=== PATIENT | male | born 1965 | race Caucasian/White ===

== ENCOUNTER → 2020-03-26 | Outpatient (CLI) | payer OTHER ==
--- NOTE | 2020-03-26 09:50 | Diagnostic Imaging Report ---
EXAMINATION: Right knee radiographs, 3 views. COMPARISON: None. HISTORY: 54-year-old male, right knee pain. FINDINGS: There is severe patellofemoral compartment joint space loss. The medial and lateral compartments are not significantly narrowed. There is no knee joint effusion. There is no identified acute fracture. There is no chondrocalcinosis. IMPRESSION: 1. Severe and isolated patellofemoral compartment arthritis without knee joint effusion or chondrocalcinosis. Dictated by: Dictated on workstation # [id number]
== END ==
LOC: RAD FS 09:32
PROVIDERS: ATTEND Nurse Practitioner
DX: M17.11 Unilateral primary osteoarthritis, right knee (principal)
CPT/HCPCS: 73562

== ENCOUNTER 2020-07-16 15:12 | Day surgery (SDC) | payer MEDICARE ==
[~2020-07-16] VITALS: Ht 174 cm; Wt 150.8 kg
[2020-07-16] VITALS (8 sets, daily range): BP systolic 113–144; BP diastolic 63–78
--- NOTE | 2020-07-16 15:57 | History & Physical-Surgical ---
CLARITA ARANGO,MED STUDENT 07/16/20 1557: History of Present Illness History of Present Illness Reason for visit/HPI Pt is a 54 year old male who was sent to this hospital from Dr. Benedict in [place] for surgical management of appendicitis which was found on CT. He states he started having stabbing RLQ pain that woke him up (07/12/20) night. Rates it as a 6/10 at its worse. He states the pain comes and goes and has not gotten worse or better since it started. Lifting his knees to his chest and bending over makes the pain better. Moving and walking make it worse. Has never experienced this type of pain before. He states he takes hydrocodone regularly so he is not sure if this is making the pain less. He states he also is experiencing feeling feverish, chills, nausea and loose stools. Also reports urinary frequency, odor and orange urine. Denies previous abdominal surgeries, but has multiple previous orthopedic surgeries. Last meal was around noon, had chips. States he had a dip in before arriving here. Date of Admission Time Seen by a Provider: 15:30 I consulted on this patient on 07/16/20 15:50 Attending Physician Karen Duke DO Admitting Physician Anderson Benedict MD Consult Allergies and Home Medications Allergies Coded Allergies: No Known Drug Allergies (Unverified , 07/16/20) Home Medications Atorvastatin Calcium 20 Mg Tablet, 20 MG PO HS, (Reported) Escitalopram Oxalate 20 Mg Tablet, 20 MG PO DAILY, (Reported) Glimepiride 1 Mg Tablet, 1 MG PO DAILY, (Reported) Hydrochlorothiazide 25 Mg Tablet, 25 MG PO DAILY, (Reported) Hydrocodone/Acetaminophen 1 Each Tablet, 1 EACH PO TID, (Reported) Insulin Glargine,Hum.rec.anlog 100 Unit/1 Ml Vial, 10 UNIT SQ DAILY, (Reported) Irbesartan 300 Mg Tablet, 300 MG PO DAILY, (Reported) Lamotrigine 100 Mg Tablet, 100 MG PO BID, (Reported) Metformin HCl 1,000 Mg Tablet, 1,000 MG PO BID, (Reported) Quetiapine Fumarate 100 Mg Tablet, 100 MG PO HS, (Reported) Past Eutjajj-Klhhoo-Xnvrzj Hx Patient Social History Smoking Status: Never a Smoker Type Used: Smokeless Tobacco Substance type: Nicotine Surgeries History of Surgeries: Yes Surgeries: Joint Replacement (L hip), Orthopedic (bilateral knee scopes, R rotator cuff, R biceps tendon, L ankle), Tonsillectomy Respiratory History of Respiratory Disorde: Yes Respiratory Disorders: Sleep Apnea Cardiovascular History of Cardiac Disorders: Yes Cardiac Disorders: High Cholesterol, Hypertension Genitourinary History of Genitourinary Disor: No Gastrointestinal History of Gastrointestinal Di: No Musculoskeletal History of Musculoskeletal Dis: Yes Musculoskeletal Disorders: Arthritis Endocrine History of Endocrine Disorders: Yes Endocrine Disorders: Diabetes, Insulin dep HEENT History of HEENT Disorders: No Psychosocial History of Psychiatric Problem: Yes Behavioral Health Disorders: Bipolar Family Medical History Significant Family History: Cancer (mom- lung), CAD Over 55 Years Old Review of Systems Constitutional: chills, fever; No weakness EENTM: No blurred vision, No vision loss, No throat pain Respiratory: cough, short of breath Cardiovascular: No chest pain, No palpitations Gastrointestinal: abdominal pain (RLQ), diarrhea; No dysphagia; nausea; No vomiting Genitourinary: No dysuria; frequency, other (abnormal odor) Musculoskeletal: joint pain, muscle pain; No muscle weakness Skin: No lesions, No rash Psychiatric/Neurological: Denies Headache; Numbness (Left hand occasionally), Paresthesia (left hand); Denies Weakness denies easy bleeding or bruising Physical Exam Vital Signs Capillary Refill : Height, Weight, BMI Height: '" Weight: lbs. oz. kg; BMI Method: General Appearance: No Apparent Distress, WD/WN, Obese Eyes: Bilateral Eye EOMI HEENT: Moist Mucous Membranes; No Scleral Icterus (L), No Scleral Icterus (R) Neck: Full Range of Motion, Non Tender, Supple Respiratory: Lungs Clear, No Accessory Muscle Use, No Respiratory Distress Cardiovascular: No Murmur, Tachycardia Gastrointestinal: Normal Bowel Sounds, Soft; No Distended, No Guarding; Tenderness (right sided with palpation, worse in RLQ ), Other (obese abdomen) Back: No Vertebral Tenderness Extremity: Normal Capillary Refill, Non Tender, No Pedal Edema Neurologic/Psychiatric: Alert, Oriented x3, No Motor/Sensory Deficits, Normal Mood/Affect Skin: Normal Color, Warm/Dry Lymphatic: No Adenopathy (cervical, axillary, groin) Data Review Labs Laboratory Tests 07/16/20 15:52: Glucometer 162H Assessment/Plan Assessment/Plan Assessment/Plan Acute appendicitis HTN Insulin dependent DM Plan for laparoscopic appendectomy today KAREN DUKE DO 07/16/20 1650: History of Present Illness History of Present Illness Reason for visit/HPI When I spoke to pt he stated he has never had pain like this before; "when I bounced on my heels at urgent care, pain was 6 out of 10; but they told me appendicitis would be 10 out of 10. Denied vomiting. Time Seen by a Provider: 16:08 Allergies and Home Medications Allergies Coded Allergies: No Known Drug Allergies (Unverified , 07/16/20) Home Medications Atorvastatin Calcium 20 Mg Tablet, 20 MG PO HS, (Reported) Escitalopram Oxalate 20 Mg Tablet, 20 MG PO DAILY, (Reported) Glimepiride 1 Mg Tablet, 1 MG PO DAILY, (Reported) Hydrochlorothiazide 25 Mg Tablet, 25 MG PO DAILY, (Reported) Hydrocodone/Acetaminophen 1 Each Tablet, 1 EACH PO TID, (Reported) Insulin Glargine,Hum.rec.anlog 100 Unit/1 Ml Vial, 10 UNIT SQ DAILY, (Reported) Irbesartan 300 Mg Tablet, 300 MG PO DAILY, (Reported) Lamotrigine 100 Mg Tablet, 100 MG PO BID, (Reported) Metformin HCl 1,000 Mg Tablet, 1,000 MG PO BID, (Reported) Quetiapine Fumarate 100 Mg Tablet, 100 MG PO HS, (Reported) Patient Home Medication List Home Medication List Reviewed: Yes Past Yvjfsyh-Bpvcco-Dhoxyd Hx Patient Social History Have you traveled recently?: No Surgeries History of Surgeries: Yes Surgeries: Joint Replacement (L hip), Orthopedic (bilateral knee scopes, R rotator cuff, R biceps tendon, L ankle) Respiratory History of Respiratory Disorde: Yes Cardiovascular History of Cardiac Disorders: Yes Neurological History of Neurological Disord: No Genitourinary History of Genitourinary Disor: No Gastrointestinal History of Gastrointestinal Di: No Musculoskeletal History of Musculoskeletal Dis: Yes Musculoskeletal Disorders: Arthritis Endocrine History of Endocrine Disorders: Yes Endocrine Disorders: Diabetes, Insulin dep HEENT History of HEENT Disorders: No Cancer History of Cancer: No Psychosocial History of Psychiatric Problem: Yes Behavioral Health Disorders: Bipolar Blood Transfusions History of Blood Disorders: No Family Medical History Significant Family History: Cancer (mom- lung), CAD Over 55 Years Old Review of Systems Constitutional: chills, fever; No weakness EENTM: No blurred vision, No vision loss, No throat pain, No throat swelling Respiratory: cough, short of breath Cardiovascular: No chest pain, No palpitations Gastrointestinal: abdominal pain (RLQ), diarrhea; No dysphagia; nausea; No vomiting Genitourinary: No dysuria; frequency; No hematuria Musculoskeletal: joint pain, joint swelling, muscle pain; No muscle weakness Skin: No lesions, No rash Psychiatric/Neurological: Emotional Problems; Denies Headache; Numbness (Left hand occasionally), Paresthesia (left hand); Denies Weakness Denies any abnormal bleeding or bruising Physical Exam Vital Signs HR 110, BP 141/77, R - 22, T - 37 General Appearance: No Apparent Distress, WD/WN, Obese Eyes: Bilateral Eye PERRL, Bilateral Eye EOMI HEENT: Moist Mucous Membranes; No Scleral Icterus (L), No Scleral Icterus (R) Neck: Full Range of Motion, Non Tender, Supple Respiratory: Lungs Clear, No Accessory Muscle Use, No Respiratory Distress Cardiovascular: No Murmur, Tachycardia Gastrointestinal: Normal Bowel Sounds, Soft; No Distended; Guarding (voluntary with deep palpation), Tenderness (right sided with palpation, worse in RLQ ), Other (obese abdomen) Rectal: Deferred Back: No Vertebral Tenderness Extremity: Normal Capillary Refill, Non Tender Neurologic/Psychiatric: Alert, Oriented x3, No Motor/Sensory Deficits, Normal Mood/Affect Skin: Normal Color, Warm/Dry Lymphatic: No Adenopathy (cervical, axillary, groin) Data Review Radiology Date of Exam:07/16/20 CT ABDOMEN/PELVIS WO PROCEDURE: CT abdomen and pelvis without contrast. TECHNIQUE: Multiple contiguous axial images were obtained through the abdomen and pelvis without the use of intravenous contrast. Auto Exposure Controls were utilized during the CT exam to meet ALARA standards for radiation dose reduction. INDICATION: Frequent urination, right lower quadrant pain. No prior studies are available for comparison. Imaging through lung bases demonstrates tiny subpleural nodules right lower lobe, largest approximately 4 mm in size. The liver does demonstrate some generalized low density suggestive of hepatic steatosis. No discrete liver mass is identified. Gallbladder is unremarkable. There is no biliary ductal dilatation. The pancreas and spleen are unremarkable. No adrenal mass is detected. No renal calculi or hydronephrosis is identified. Aorta is non-aneurysmal. The small and large bowel loops are normal caliber. No obstruction is seen. There are significant inflammatory changes identified in the right lower quadrant. There does appear to be a dilated tubular structure adjacent to the cecum, most likely representing an inflamed appendix. There is no free fluid or fluid collection identified. No free air. Bladder is decompressed. There is a large amount of artifact in the pelvis from patient's left hip prosthesis. IMPRESSION: 1. Inflammatory changes in the right lower quadrant. The imaging findings are suspicious for acute appendicitis. No abscess formation or bowel obstruction is identified. 2. No evidence of urinary tract calculi or obstruction. 3. Hepatic steatosis. Called/faxed to Dr. Benedict at 1:20 p.m. by cvb. Dictated by: Dictated on workstation # [id number] Dict: 07/16/20 1312 Trans: 07/16/20 1610 CVB [id number] Interpreted by: LUIS ANTONIO CREWS MD Electronically signed by: LUIS ANTONIO CREWS MD 07/16/20 1618 Assessment/Plan Assessment/Plan Admission Diagonsis Acute Appendicitis Admission Status: Observation Assessment/Plan Acute Appendicitis HTN, DM, Sleep Apnea, Morbid Obesity CT shows large amount of inflammation and I think there could possibly be an abscess. Pt will get IV ABX just prior to OR, pain meds, IV fluids, and anti- emetics. Pt did eat at noon and dipped on the way down here; therefore, he will be at increased risk for aspiration. We also discussed the risks and complications of surgery; not limited to pain, bleeding, infection, scar, damage to bowel and need for further procedure. We will get consent for Laparoscopic Appendectomy, possible open and talked about possible drain placement. He may be able to go home tonight, but it will depend on how bad the inflammation is versus an abscess. All questions answered to his and his 's satisfaction. Supervisory-Addendum Brief Verification & Attestation Participated in pt care: history, MDM, physical Personally performed: exam, history, MDM Care discussed with: Medical Student Procedures: n/a Verification and Attestation of Medical Student E/M Service A medical student performed and documented this service. I then reviewed and verified all information documented by the medical student and made modifications to such information, when appropriate. I personally performed a physical exam, medical decision making and then discussed any differences between the notes and made revisions as necessary to create one note. Karen Duke , 07/16/20 , 17:00 CLARITA ARANGO,MED STUDENT Jul 16, 2020 15:57 KAREN DUKE DO Jul 16, 2020 16:50
[2020-07-16] MEDS ORDERED: HYDR25TA4 PO (16:24)
[2020-07-16] MEDS ORDERED: METF-399 PO (16:24)
[2020-07-16] MEDS ORDERED: INSU100V6 SQ (16:24)
[2020-07-16] MEDS ORDERED: ATOR20TA66 PO (16:24)
[2020-07-16] MEDS ORDERED: GLIM1TAB4 PO (16:24)
[2020-07-16] MEDS ORDERED: ESCI20TA39 PO (16:24)
[2020-07-16] MEDS ORDERED: HYDR-3817 PO ×2 (16:24→19:42)
[2020-07-16] MEDS ORDERED: LAMO100T5 PO (16:24)
[2020-07-16] MEDS ORDERED: IRBE300T17 PO (16:24)
[2020-07-16] MEDS ORDERED: QUET100T PO (16:24)
[2020-07-16] MEDS ORDERED: ceFAZolin 2 GM IV Premixed 50 ML ONE (16:30)
[2020-07-16] MEDS ORDERED: ceFAZolin 2 GM IV Premixed 50 ML IV ONE (16:45)
[2020-07-16] MEDS: LACTATED RINGERS 1,000 ML IV PRN ×3 (16:53→19:45)
[2020-07-16] MEDS ORDERED: LIDOCAINE/EPI 1%-1:100,000 (XYLOCAINE) 50 ML ONE (18:05)
[2020-07-16] MEDS ORDERED: fentaNYL INJECTION 100 MCG/2 ML AMP ONE (18:09)
[2020-07-16] MEDS ORDERED: MIDAZOLAM 2 MG/2 ML (VERSED) VIAL ONE (18:10)
[2020-07-16] MEDS ORDERED: HYDROmorphone 2 MG/ML VIAL (DILAUDID) ONE ×2 (18:45→20:06)
[2020-07-16] MEDS ORDERED: proPOfol 200 MG/20 ML (DIPRIVAN) VIAL IV ONE (19:33)
[2020-07-16] MEDS ORDERED: ROCURONIUM 10 MG/ML 5 ML SYRINGE IV ONE (19:33)
[2020-07-16] MEDS ORDERED: ONDANSETRON 4 MG/2 ML (SDV) Z0FRAN ONE (19:33)
[2020-07-16] MEDS ORDERED: SUGAMMADEX 500 MG/5 ML VIAL (BRIDION) IV ONE (19:33)
[2020-07-16] MEDS ORDERED: LIDOCAINE PF 2% 5 ML (XYLOCAINE) VIAL ONE (19:33)
[2020-07-16] MEDS ORDERED: SUCCINYLCHOLINE INJ 100 MG/5 ML SYR/VIAL ONE (19:33)
--- NOTE | 2020-07-16 19:40 | Progress Note-Post Operative ---
Post-Operative Progess Note Surgeon (s)/Smoking Pipe Driller And Threader (s) Surgeon KAREN DUKE DO Smoking Pipe Driller And Threader: Cat Hernandez MSIV, Aleks Gaytan MSIII Pre-Operative Diagnosis ACUTE APPENDICITIS Post-Operative Diagnosis same with abscess Procedure & Operative Findings Date of Procedure 07/16/20 Procedure Performed/Findings PROCEDURE: Laparoscopic appendectomy. COMPLICATIONS: None. INDICATIONS: The patient is a 54 year old male who has been having right lower quadrant abdominal pain. Patient's exam consistent with appendicitis. I discussed risk and benefits of laparoscopic appendectomy and all indicated procedures with the possibility being a normal appendix. The patient understands the risks and benefits and wishes to proceed. Consent was signed on the chart. DESCRIPTION OF PROCEDURE: The patient was taken to the operating suite, prepped and draped in a sterile fashion. Timeout was performed. Local anesthetic was infiltrated just above the umbilicus and 11-blade scalpel was used to make a skin incision. Cautery was used to dissect down to the fascia and scored. Kochers were used to grasp and elevate it and the abdomen was then entered. A 0 Vicryl was placed in a [id number] fashion for closure at the end of the case. The balloon trocar was inserted into the abdomen and pneumoperitoneum was achieved. Under direct visualization of the laparoscope, a 5 mm trocar was placed in the suprapubic region and a 5 mm trocar was placed in the left lower quadrant. Appendix was located, after first the simgoid and terminal ileum from around the burst appendix. Also, encountered a large amount of purulent fluid and necrotic tissue. Able to gently dissect with blunt end of grasper and used hydrodissection. The base of the appendix was dissected around. Once at the base an Endo-JELENA 2.5 stapler was then fired across the base of the appendix. The mesoappendix was then divided. It was then placed in an Endobag and removed through the 12 mm trocar site. The abdomen was then irrigated with two liters of warm normal saline and then suctioned out. No other pathology noted. The abdomen was then desufflated and the trocars were removed. The 0 Vicryl placed at the beginning of the case was then tied closing the 12 mm fascial defect. The skin was then closed using 4-0 Monocryl in a subcuticular fashion. The abdomen was then washed and dried and Skin Affix was placed over the incisions. The patient tolerated the procedure well without any complications and was taken to the recovery room in stable condition. Anesthesia Type GET Estimated Blood Loss Estimated blood loss (mL): less than 10ml Specimens/Packing Specimens Removed appendix KAREN DUKE DO Jul 16, 2020 19:40
[2020-07-16] MEDS ORDERED: CEPH500T PO (19:42)
--- NOTE | 2020-07-16 19:43 | Discharge Inst-Surgical ---
Discharge Inst-Surgical Depart Medication/Instructions New, Converted or Re-Newed RX: RX Given to Pt/Family Patient Instructions Follow up Appt: Make appointment for 1 week. [phone] Instructions: No lifting greater than 20 pounds. No strenuous activity. May shower in 24 hours, no tub bath or soaking. Use incentive spirometer at home as directed. No Smoking Skin/Wound Care: May remove bandages in am. You need to leave the Dermabond on incision it will fall off on it's own. Symptoms to Report: Appetite Changes, Extremity Discoloration, Numbness/Tingling, Swelling Increased, Bleeding Excessive, Eyesight Changes, Pain Increased, Urine Color Change, Constipation(Persistent), Fever over 101 degree F, Pain/Pressure in chest, Urinating Difficulty, Cough Up/Vomit Blood, Heart Beat Irreg/Pounding, Pain/Pressure in jaw, Cramps in feet or legs, Lightheadedness, Pain/Pressure in shoulder, Diarrhea(Persistent), Memory Changes Suddenly, Questions/Concerns, Weight gain consecutive days, Dizziness/Fainting, Nausea/Vomiting, Shortness of Breath, Weight gain over 2 pounds If questions or concerns contact your physician Or seek help at emergency department. Activity Activity as Tolerated: Yes Activity Instructions: Avoid Stress to Incision Driving Instructions: No Driving/Refer to Dr. Vidal Discharge Diet: No Restrictions Diet After 24 Hours: Clear Liquid if Nauseous If Any Problems/Questions/Issu: Contact Your Physician, Go to Emergency Room Skin/Wound Care Infection Signs and Symptoms: Increased Redness, Foul Odor of Wound, Increased Drainage, Skin Itchy or Has a Rash, Increased Swelling, Temperature Above 101 F Wound Care Comment: Heating pad to shoulder or neck tonight for pain Bathing Instructions: Shower Stitches/Han/Dermabond Dis: Dermabond Ice Pack: Ice On and Off Site KAREN DUKE DO Jul 16, 2020 19:43
[2020-07-16] MEDS ORDERED: HYDROmorphone 2 MG/ML VIAL (DILAUDID) IV ONE (20:15)
[2020-07-16] MEDS ORDERED: morphine INJ 10 MG/ML 1ML (SYR OR VIAL) IVP ONE (20:15)
[2020-07-16] MEDS ORDERED: ONDANSETRON 4 MG/2 ML (SDV) Z0FRAN IVP PRN ×2 (20:15→23:15)
[2020-07-16] MEDS ORDERED: SEVOFLURANE (ULTANE) 15 ML INHAL SOLN ONE (20:17)
[2020-07-16] MEDS: LACTATED RINGERS 1,000 ML IV SCH (23:41)
[2020-07-16] MEDS: morphine INJ 4 MG/ML 1 ML (VIAL/SYRINGE) IVP PRN (23:41)
[2020-07-17 00:52] LABS: BUN/CREATININE RATIO 14; CREATININE SERUM 0.86 MG/DL (0.60-1.30); GFR ESTIMATED > 60
[2020-07-17] MEDS: ceFAZolin 2 GM IV Premixed 50 ML IV SCH ×2 (01:12→09:36)
[2020-07-17] MEDS: morphine INJ 4 MG/ML 1 ML (VIAL/SYRINGE) IVP PRN ×3 (01:56→06:49)
[2020-07-17 04:07] VITALS: BP 136/79
--- NOTE | 2020-07-17 07:26 | Progress Note - Surgery ---
PAUL JORDAN MED STUDENT 07/17/20 0726: Subjective Date Seen by a Provider: Jul 17, 2020 Time Seen by a Provider: 07:20 Subjective/Events-last exam Pt awake in bed when entering, but easily falls back asleep. Pt notes increased pain 7/10 generalized abdominal pain. Pt also c/o constant sweating. Pt confirms loose BM and pain with urination described as stinging. No acute events over night. Review of Systems General: No Chills; Other (Constant diffuse sweating) HEENT: No Head Aches, No Dysphasia Pulmonary: Dyspnea; No Cough Cardiovascular: No: Chest Pain, Palpitations Gastrointestinal: Nausea, Abdominal Pain; No: Vomiting Genitourinary: Dysuria (Stinging pain), Frequency Musculoskeletal: No: shoulder pain, leg pain Neurological: No: Weakness, Change in speech Objective Exam Vital Signs Date Time Temp Pulse Resp B/P (MAP) Pulse Ox O2 Delivery O2 Flow Rate FiO2 07/17/20 04:07 36.5 105 20 136/79 (98) 95 Nasal Cannula 2.00 07/16/20 22:39 36.6 103 18 141/63 (89) 98 Nasal Cannula 4.00 07/16/20 20:50 36.1 22 137/78 (97) 97 Nasal Cannula 4 07/16/20 20:50 36.6 99 18 144/63 (90) 96 Nasal Cannula 4.00 07/16/20 20:50 Nasal Cannula 4 07/16/20 20:50 98 Nasal Cannula 4.00 07/16/20 20:45 Nasal Cannula 4 07/16/20 20:40 20 133/76 (95) 97 Nasal Cannula 4 07/16/20 20:30 22 138/67 (90) 97 Nasal Cannula 4 07/16/20 20:30 Nasal Cannula 4 07/16/20 20:20 18 137/68 (91) 96 Nasal Cannula 4 07/16/20 20:15 OxyMask 6 07/16/20 20:10 14 124/68 (86) 96 OxyMask 6 07/16/20 20:02 OxyMask 6 07/16/20 20:02 36.1 18 113/65 (81) 96 OxyMask 6 07/16/20 15:20 37.0 110 22 141/77 (98) 95 Room Air I & O 07/17/20 07:00 Intake Total 2550 ml Output Total 125 ml Balance 2425 ml Capillary Refill : Less Than 3 Seconds General Appearance: No Apparent Distress, WD/WN, Obese HEENT: PERRL/EOMI, Moist Mucous Membranes; No Scleral Icterus (L), No Scleral Icterus (R) Neck: Full Range of Motion, Non Tender, Supple Respiratory: Lungs Clear, Normal Breath Sounds, No Accessory Muscle Use, No Respiratory Distress Cardiovascular: No Murmur, Tachycardia Gastrointestinal: normal bowel sounds, soft, tenderness (generalized to palpation), other (Incisions are intact w/o erythema or signs of infection) Extremity: Normal Inspection, Non Tender Neurologic/Psychiatric: Alert, Oriented x3, No Motor/Sensory Deficits, Normal Mood/Affect Skin: Diaphoresis, Pallor Results Lab Laboratory Tests 07/16/20 15:52: Glucometer 162H 07/16/20 20:09: Glucometer 129H 07/17/20 00:27: Blood Urea Nitrogen 12, Creatinine 0.86, Estimat Glomerular Filtration Rate > 60, BUN/Creatinine Ratio 14 07/17/20 06:19: Glucometer 161H Assessment/Plan Assessment/Plan Assessment/Plan Post status appendectomy HTN, DM, Sleep Apnea, Morbid Obesity Pain management Advance diet as tolerated Possible discharge home today JANN DELATORRE DO 07/18/20 1846: Subjective Time Seen by a Provider: 08:41 Subjective/Events-last exam Pt seen and examined, moderate abdominal pain. Review of Systems General: No Chills Pulmonary: Dyspnea; No Cough Cardiovascular: No: Chest Pain, Palpitations Gastrointestinal: Nausea, Abdominal Pain; No: Vomiting Objective Exam General Appearance: No Apparent Distress, Obese HEENT: Moist Mucous Membranes Respiratory: Lungs Clear, Normal Breath Sounds Cardiovascular: No Murmur, Tachycardia Gastrointestinal: soft, tenderness (generalized to palpation), other (Incisions are intact w/o erythema or signs of infection) Assessment/Plan Assessment/Plan Assessment/Plan S/P lap appy D/C IV and D/C home Supervisory-Addendum Brief Verification & Attestation Participated in pt care: history, MDM, physical Personally performed: exam, history, MDM Care discussed with: Medical Student Procedures: n/a Verification and Attestation of Medical Student E/M Service A medical student performed and documented this service. I then reviewed and verified all information documented by the medical student and made modifications to such information, when appropriate. I personally performed a physical exam, medical decision making and then discussed any differences b etween the notes and made revisions as necessary to create one note. Jann Delatorre , 07/18/20 , 18:44 PAUL JORDAN MED STUDENT Jul 17, 2020 07:26 JANN DELATORRE DO Jul 18, 2020 18:46
[2020-07-17] MEDS: LACTATED RINGERS 1,000 ML IV SCH (07:31)
[2020-07-17 08:00] VITALS: BP 151/66
[2020-07-17] MEDS ORDERED: HYDROcodone/APAP 7.5 MG/325 MG (LORTAB, LORCET PLUS) TABLET PO ONE (08:45)
--- NOTE | 2020-07-17 13:51 | Anesthesia-General Post-Op ---
General Patient Condition Mental Status/LOC: Same as Preop Cardiovascular: Satisfactory Nausea/Vomiting: Absent Respiratory: Satisfactory Pain: Controlled Complications: Absent Post Op Complications Complications None Follow Up Care/Instructions Patient Instructions None needed. Anesthesia/Patient Condition Patient Condition Patient was seen this morning in postop rounds and he was doing well, no complaints, stable vital signs, no apparent adverse anesthesia problems. SULEMAN COTTRELL DO Jul 17, 2020 13:51
== END 2020-07-17 10:30 | disposition home or self-care (01) ==
LOC: SDC 15:12 → 4TH 20:50 → SDC 07-17 10:30
PROVIDERS: ATTEND Surgery
DX: K35.80 Unspecified acute appendicitis (principal); I10 Essential (primary) hypertension; G47.33 Obstructive sleep apnea (adult) (pediatric); E11.9 Type 2 diabetes mellitus without complications; E78.00 Pure hypercholesterolemia, unspecified; M19.90 Unspecified osteoarthritis, unspecified site; G47.30 Sleep apnea, unspecified; E66.01 Morbid (severe) obesity due to excess calories; Z68.42 Body mass index [BMI] 45.0-49.9, adult; Z79.899 Other long term (current) drug therapy; Z79.4 Long term (current) use of insulin; Z80.1 Family history of malignant neoplasm of trachea, bronchus and lung
CPT/HCPCS: 36415; 82565; 82962; 84520; 87081

== ENCOUNTER → 2020-07-16 | Outpatient (CLI) | payer MEDICARE, OTHER ==
[~2020-07-16] MED LIST: ATOR20TA66 PO; CEPH500T PO; ESCI20TA39 PO; GLIM1TAB4 PO; HYDR-3817 PO; HYDR25TA4 PO; INSU100V6 SQ; IRBE300T17 PO; LAMO100T5 PO; METF-399 PO; QUET100T PO
[2020-07-16 13:04] LABS: BILIRUBIN,URINE NEGATIVE (NEGATIVE); CLARITY,URINE CLEAR; COLOR,URINE DARK YELLOW; GLUCOSE, URINE (UA) NEGATIVE (NEGATIVE); KETONES,URINE NEGATIVE (NEGATIVE); LEUKOCYTE ESTERASE ,URINE NEGATIVE (NEGATIVE); NITRITE,URINE NEGATIVE (NEGATIVE); PROTEIN,URINE TRACE (NEGATIVE)
[2020-07-16 13:19] LABS: BACTERIA,URINE NEGATIVE /HPF; SQUAMOUS EPITHELIAL CELL,UR RARE /HPF
--- NOTE | 2020-07-16 13:25 | Diagnostic Imaging Report ---
PROCEDURE: CT abdomen and pelvis without contrast. TECHNIQUE: Multiple contiguous axial images were obtained through the abdomen and pelvis without the use of intravenous contrast. Auto Exposure Controls were utilized during the CT exam to meet ALARA standards for radiation dose reduction. INDICATION: Frequent urination, right lower quadrant pain. No prior studies are available for comparison. Imaging through lung bases demonstrates tiny subpleural nodules right lower lobe, largest approximately 4 mm in size. The liver does demonstrate some generalized low density suggestive of hepatic steatosis. No discrete liver mass is identified. Gallbladder is unremarkable. There is no biliary ductal dilatation. The pancreas and spleen are unremarkable. No adrenal mass is detected. No renal calculi or hydronephrosis is identified. Aorta is non-aneurysmal. The small and large bowel loops are normal caliber. No obstruction is seen. There are significant inflammatory changes identified in the right lower quadrant. There does appear to be a dilated tubular structure adjacent to the cecum, most likely representing an inflamed appendix. There is no free fluid or fluid collection identified. No free air. Bladder is decompressed. There is a large amount of artifact in the pelvis from patient's left hip prosthesis. IMPRESSION: 1. Inflammatory changes in the right lower quadrant. The imaging findings are suspicious for acute appendicitis. No abscess formation or bowel obstruction is identified. 2. No evidence of urinary tract calculi or obstruction. 3. Hepatic steatosis. Called/faxed to Dr. Benedict at 1:20 p.m. by cvb. Dictated by: Dictated on workstation # [id number]
--- NOTE | 2020-07-16 18:22 | Diagnostic Imaging Report ---
INDICATION: Right lower quadrant abdominal pain. COMPARISON: CT abdomen and pelvis performed same day. FINDINGS: Nonobstructive bowel gas pattern. No renal or ureteral calculi are appreciated by radiography. Left total hip arthroplasty. Mild multilevel degenerative changes of lumbar spine. IMPRESSION: No radiographic abnormality in the abdomen. Please see CT report from earlier same day for details of the acute appendicitis. Dictated by: Dictated on workstation # [id number]
== END ==
LOC: RAD 12:53
PROVIDERS: ATTEND Family Medicine
DX: K76.0 Fatty (change of) liver, not elsewhere classified (principal); R35.0 Frequency of micturition
CPT/HCPCS: 74018; 74176; 81000

== ENCOUNTER 2021-09-08 10:58 | Emergency (ER) | payer MEDICARE ==
[~2021-09-08] VITALS: Ht 180.3 cm; Wt 150.8 kg
--- NOTE | 2021-09-08 11:10 | ED General ---
General Stated Complaint: CHEST PAIN Source of Information: Patient Exam Limitations: No Limitations History of Present Illness Date Seen by Provider: Sep 08, 2021 Time Seen by Provider: 11:00 Initial Comments Patient is a 55-year-old male with history of hypertension dyslipidemia and diabetes who presents with intermittent daily epigastric pain/burning for several months. Symptoms occur multiple times a day and usually within an hour of eating. Patient also reports mild dyspnea and sweats after eating. The symptoms are not immune new. He denies exertional chest pain shortness of breath. No fever chills, nausea, abdominal pain or tenderness. No other acute symptoms or complaints. Patient states he feels as though he has reflux but does not take any medications for this condition. Timing/Duration: 1-3 Hours Severity: Mild Associated Systoms: Other Allergies and Home Medications Allergies Coded Allergies: No Known Drug Allergies (Unverified , 07/16/20) Patient Home Medication List Home Medication List Reviewed: Yes Atorvastatin Calcium (Atorvastatin Calcium) 20 Mg Tablet, 20 MG PO HS, (Reported) Entered as Reported by: MELANIE SINCLAIR on 07/16/201623 Cephalexin (Cephalexin) 500 Mg Tablet, 500 MG PO TID Prescribed by: KAREN DUKE on 07/16/201941 Escitalopram Oxalate (Escitalopram Oxalate) 20 Mg Tablet, 20 MG PO DAILY, (Reported) Entered as Reported by: MELANIE SINCLAIR on 07/16/201623 Glimepiride (Glimepiride) 1 Mg Tablet, 1 MG PO DAILY, (Reported) Entered as Reported by: MELANIE SINCLAIR on 07/16/201623 Hydrochlorothiazide (Hydrochlorothiazide) 25 Mg Tablet, 25 MG PO DAILY, (Reported) Entered as Reported by: MELANIE SINCLAIR on 07/16/201623 Hydrocodone/Acetaminophen (Hydrocodone-Acetamin 7.5-325) 1 Each Tablet, 1 EACH PO TID Prescribed by: KAREN DUKE on 07/16/201941 Insulin Glargine,Hum.rec.anlog (Lantus) 100 Unit/1 Ml Vial, 10 UNIT SQ DAILY, (Reported) Entered as Reported by: MELANIE SINCLAIR on 07/16/201623 Irbesartan (Irbesartan) 300 Mg Tablet, 300 MG PO DAILY, (Reported) Entered as Reported by: MELANIE SINCLAIR on 07/16/20 162 Lamotrigine (Lamotrigine) 100 Mg Tablet, 100 MG PO BID, (Reported) Entered as Reported by: MELANIE SINCLAIR on 07/16/20 162 Metformin HCl (Metformin HCl) 1,000 Mg Tablet, 1,000 MG PO BID, (Reported) Entered as Reported by: EMLANIE SINCLAIR on 07/16/20 162 Quetiapine Fumarate (Seroquel) 100 Mg Tablet, 100 MG PO HS, (Reported) Entered as Reported by: MELANIE SINCLAIR on 07/16/20 1624 Review of Systems Review of Systems Constitutional: see HPI EENTM: see HPI Respiratory: see HPI Cardiovascular: see HPI Gastrointestinal: see HPI Genitourinary: see HPI Musculoskeletal: see HPI Skin: see HPI Psychiatric/Neurological: See HPI Hematologic/Lymphatic: See HPI Immunological/Allergic: see HPI All Other Systems Reviewed Negative Unless Noted: Yes Past Bsodymu-Vngbgk-Avizdz Hx Patient Social History Tobacco Use?: Yes Seasonal Allergies Seasonal Allergies: No Past Medical History Surgeries: Yes Joint Replacement, Orthopedic, Thyroidectomy, Tonsillectomy Respiratory: Yes Sleep Apnea Currently Using CPAP: No Cardiac: Yes High Cholesterol, Hypertension Neurological: No Sexually Transmitted Disease: No HIV/AIDS: No Genitourinary: No Gastrointestinal: No Musculoskeletal: Yes Arthritis, Chronic Back Pain, Fractures Endocrine: Yes Diabetes, Insulin dep HEENT: No Cancer: No Psychosocial: Yes Bipolar Integumentary: No Blood Disorders: No Family Medical History Cancer, CAD Over 55 Years Old Physical Exam Vital Signs Vital Signs - First Documented 09/08/21 11:02 Temp 35.7 Pulse 85 Resp 19 B/P (MAP) 192/96 (128) Pulse Ox 95 O2 Delivery Room Air Capillary Refill : Height, Weight, BMI Height: '" Weight: lbs. oz. kg; 49.80 BMI Method: General Appearance: No Apparent Distress, WD/WN Eyes: Bilateral Eye Normal Inspection, Bilateral Eye PERRL, Bilateral Eye EOMI HEENT: PERRL/EOMI Neck: Full Range of Motion, Normal Inspection Cardiovascular: Regular Rate, Rhythm, No Edema Gastrointestinal: Non Tender, Soft Back: No CVA Tenderness Extremity: Normal Capillary Refill Neurologic/Psychiatric: Alert, Oriented x3 Skin: Normal Color, Warm/Dry Focused Exam Sepsis Stage: Ruled Out Progress/Results/Core Measures Suspected Sepsis SIRS Temperature: Pulse: Respiratory Rate: Laboratory Tests 09/08/21 11:05: White Blood Count 8.9 Blood Pressure / Mean: Laboratory Tests 09/08/21 11:05: Creatinine 1.09, Platelet Count 259, Total Bilirubin 0.4 Results/Orders Lab Results Laboratory Tests Test 09/08/21 11:05 Range/Units White Blood Count 8.9 4.3-11.0 10^3/uL Red Blood Count 5.42 4.30-5.52 10^6/uL Hemoglobin 15.9 13.3-17.7 g/dL Hematocrit 48 40-54 % Mean Corpuscular Volume 89 80-99 fL Mean Corpuscular Hemoglobin 29 25-34 pg Mean Corpuscular Hemoglobin Concent 33 32-36 g/dL Red Cell Distribution Width 13.7 10.0-14.5 % Platelet Count 259 130-400 10^3/uL Mean Platelet Volume 10.0 9.0-12.2 fL Immature Granulocyte % (Auto) 2 % Neutrophils (%) (Auto) 71 42-75 % Lymphocytes (%) (Auto) 20 12-44 % Monocytes (%) (Auto) 5 0-12 % Eosinophils (%) (Auto) 2 0-10 % Basophils (%) (Auto) 1 0-10 % Neutrophils # (Auto) 6.3 1.8-7.8 10^3/uL Lymphocytes # (Auto) 1.8 1.0-4.0 10^3/uL Monocytes # (Auto) 0.5 0.0-1.0 10^3/uL Eosinophils # (Auto) 0.2 0.0-0.3 10^3/uL Basophils # (Auto) 0.1 0.0-0.1 10^3/uL Immature Granulocyte # (Auto) 0.1 0.0-0.1 10^3/uL Sodium Level 142 135-145 MMOL/L Potassium Level 4.1 3.6-5.0 MMOL/L Chloride Level 106 98-107 MMOL/L Carbon Dioxide Level 23 21-32 MMOL/L Anion Gap 13 5-14 MMOL/L Blood Urea Nitrogen 13 7-18 MG/DL Creatinine 1.09 0.60-1.30 MG/DL Estimat Glomerular Filtration Rate 79 BUN/Creatinine Ratio 12 Glucose Level 190 H 70-105 MG/DL Calcium Level 9.1 8.5-10.1 MG/DL Corrected Calcium 8.8 8.5-10.1 MG/DL Total Bilirubin 0.4 0.1-1.0 MG/DL Aspartate Amino Transf (AST/SGOT) 13 5-34 U/L Alanine Aminotransferase (ALT/SGPT) 25 0-55 U/L Alkaline Phosphatase 114 40-136 U/L Troponin I < 0.30 <0.30 NG/ML Total Protein 6.6 6.4-8.2 GM/DL Albumin 4.4 3.2-4.5 GM/DL My Orders Orders - CORBY CLAY DO Cbc With Automated Diff (09/08/21 11:10) Comprehensive Metabolic Panel (09/08/21 11:10) Troponin I Fs (09/08/21 11:10) Chest 1 View Ap/Pa Only (09/08/21 11:10) Ekg Tracing (09/08/21 11:10) Cbc With Automated Diff (09/08/21 11:28) Antacid Suspension (Mylanta Suspension (09/08/21 11:30) Lidocaine 2% Viscous 15 Ml (Xylocaine Vi (09/08/21 11:30) Medications Given in ED Current Medications Medications Dose Ordered Sig/Ross Route Start Time Stop Time Status Last Admin Dose Admin Al Hydrox/Mg Hydrox/Simethicone 30 ml ONCE ONCE PO 09/08/21 11:30 09/08/21 11:31 DC 09/08/21 11:36 30 ML Lidocaine HCl 5 ml ONCE ONCE PO 09/08/21 11:30 09/08/21 11:32 DC 09/08/21 11:36 5 ML Vital Signs/I&O 09/08/21 11:02 Temp 35.7 Pulse 85 Resp 19 B/P (MAP) 192/96 (128) Pulse Ox 95 O2 Delivery Room Air Capillary Refill : Departure Communication (Admissions) EKG: Normal sinus rhythm, no acute ST-T wave changes. Patient with postprandial chest pain/epigastric relieved with GI cocktail, EKG and troponin are negative. Patient is on risk for underlying coronary disease which cannot be excluded by today's ER visit. This was discussed in detail with patient. I will place him on antacids with instructions to follow-up with his PCP to coordinate outpatient cardiac testing. Return precautions reviewed. Patient verbalizes understanding agreement with discharge instructions prior to departure. Impression Primary Impression: Chest pain Additional Impression: GERD (gastroesophageal reflux disease) Disposition: 01 HOME, SELF-CARE Condition: Stable Departure-Patient Inst. Decision time for Depature: 11:53 Referrals: MIGUEL ANGEL GONZALES MD (PCP/Family) Primary Care Physician Patient Instructions: Chest Pain Add. Discharge Instructions: You were evaluated in the emergency department for chest pain. The EKG lab and imaging studies were performed. The exact cause of your symptoms has not been determined. Please take newly prescribed antiacid as directed and follow-up with your PCP later this week for reevaluation and to coordinate additional outpatient cardiac testing. In the meantime if you develop new or worsening symptoms, please return to the emergency department. Scripts Famotidine (Pepcid) 20 Mg Tablet 20 MG PO BID, #60 TAB Prov: CORBY CLAY DO 09/08/21 CORBY CLAY DO Sep 08, 2021 11:10
[2021-09-08 11:19] LABS: BASOPHILS # (AUTO) 0.1 10^3/uL (0.0-0.1); BASOPHILS % (AUTO) 1 % (0-10); EOSINOPHILS # (AUTO) 0.2 10^3/uL (0.0-0.3); EOSINOPHILS % (AUTO) 2 % (0-10); HEMATOCRIT 48 % (40-54); HEMOGLOBIN 15.9 g/dL (13.3-17.7); LYMPHOCYTES # (AUTO) 1.8 10^3/uL (1.0-4.0); LYMPHOCYTES % (AUTO) 20 % (12-44); MEAN CORPUSCULAR HEMOGLOBIN 29 pg (25-34); MEAN CORPUSCULAR HGB CONC 33 g/dL (32-36); MEAN CORPUSCULAR VOLUME 89 fL (80-99); MONOCYTES # (AUTO) 0.5 10^3/uL (0.0-1.0); MONOCYTES % (AUTO) 5 % (0-12); NEUTROPHILS # (AUTO) 6.3 10^3/uL (1.8-7.8); NEUTROPHILS % (AUTO) 71 % (42-75); PLATELET COUNT 259 10^3/uL (130-400); WHITE BLOOD COUNT 8.9 10^3/uL (4.3-11.0)
[2021-09-08] MEDS ORDERED: ANTACID SUSP 30 ML UDC (MYLANTA) PO ONE (11:30)
[2021-09-08] MEDS ORDERED: LIDOCAINE 2% VISCOUS 15 ML UDC PO ONE (11:30)
--- NOTE | 2021-09-08 11:32 | Diagnostic Imaging Report ---
INDICATION: Shortness of air, sweating. TECHNIQUE: Single view chest 11:16 AM. CORRELATION STUDY: None FINDINGS: Borderline heart size. Vasculature within normal limits. Calcified granulomatous lung. No infiltrate or effusion. IMPRESSION: 1. Borderline heart size without failure. Dictated by: Dictated on workstation # [id number]
[2021-09-08 11:43] LABS: ALANINE AMINOTRANSFERASE 25 U/L (0-55); ALBUMIN 4.4 GM/DL (3.2-4.5); ALKALINE PHOSPHATASE 114 U/L (40-136); BILIRUBIN,TOTAL 0.4 MG/DL (0.1-1.0); BUN/CREATININE RATIO 12; CALCIUM 9.1 MG/DL (8.5-10.1); CARBON DIOXIDE 23 MMOL/L (21-32); CHLORIDE 106 MMOL/L (98-107); CREATININE SERUM 1.09 MG/DL (0.60-1.30); GFR ESTIMATED 79; GLUCOSE 190 MG/DL (70-105); POTASSIUM 4.1 MMOL/L (3.6-5.0); SODIUM 142 MMOL/L (135-145); TOTAL PROTEIN 6.6 GM/DL (6.4-8.2)
[2021-09-08] MEDS ORDERED: FAMO-119 PO (11:55)
[2021-09-08 12:00] VITALS: BP 175/83
== END 2021-09-08 11:59 | disposition home or self-care (01) ==
LOC: EDUNIT# 10:58 → ER FS 11:00
DX: R07.9 Chest pain, unspecified (principal); K21.9 Gastro-esophageal reflux disease without esophagitis; E11.9 Type 2 diabetes mellitus without complications; Z72.0 Tobacco use; Z79.4 Long term (current) use of insulin
CPT/HCPCS: 36415; 71045; 80053; 84484; 85025; 93005

== ENCOUNTER 2021-09-29 13:11 | Emergency (ER) | payer MEDICARE ==
[~2021-09-29] VITALS: Ht 180.3 cm; Wt 148.6 kg
[~2021-09-29 13:11] MED LIST changes: +FAMO-119 PO
--- NOTE | 2021-09-29 13:14 | ED Integumentary General ---
General Chief Complaint: Laceration Stated Complaint: LT HAND LAC History of Present Illness Date Seen by Provider: September 29, 2021 Time Seen by Provider: 13:14 Initial Comments 55-year-old male presents following a laceration to the left hand on the middle knuckle. Patient was working on the yard when he had a gold nib grinder fly apart a piece of wood hit his hand. He has some mild bleeding. He has full range of motion of all his fingers. His last tetanus was about a year to year and a half ago. He denies any other injury Allergies and Home Medications Allergies Coded Allergies: No Known Drug Allergies (Unverified , 07/16/20) Patient Home Medication List Home Medication List Reviewed: Yes Atorvastatin Calcium (Atorvastatin Calcium) 20 Mg Tablet, 20 MG PO HS, (Reported) Entered as Reported by: MELANIE SINCLAIR on 07/16/20 162 Cephalexin (Cephalexin) 500 Mg Tablet, 500 MG PO TID Prescribed by: KAREN DUKE on 07/16/201941 Escitalopram Oxalate (Escitalopram Oxalate) 20 Mg Tablet, 20 MG PO DAILY, (Reported) Entered as Reported by: MELANIE SINCLAIR on 07/16/20 162 Famotidine (Pepcid) 20 Mg Tablet, 20 MG PO BID Prescribed by: CORBY CLAY on 09/08/21 1155 Glimepiride (Glimepiride) 1 Mg Tablet, 1 MG PO DAILY, (Reported) Entered as Reported by: MELANIE SINCLAIR on 07/16/20 1624 Hydrochlorothiazide (Hydrochlorothiazide) 25 Mg Tablet, 25 MG PO DAILY, (Reported) Entered as Reported by: MELANIE SINCLAIR on 07/16/20 162 Hydrocodone/Acetaminophen (Hydrocodone-Acetamin 7.5-325) 1 Each Tablet, 1 EACH PO TID Prescribed by: KAREN DUKE on 07/16/201941 Insulin Glargine,Hum.rec.anlog (Lantus) 100 Unit/1 Ml Vial, 10 UNIT SQ DAILY, (Reported) Entered as Reported by: MELANIE SINCLAIR on 07/16/20 162 Irbesartan (Irbesartan) 300 Mg Tablet, 300 MG PO DAILY, (Reported) Entered as Reported by: MELANIE SINCLAIR on 07/16/20 162 Lamotrigine (Lamotrigine) 100 Mg Tablet, 100 MG PO BID, (Reported) Entered as Reported by: MELANIE SINCLAIR on 07/16/201623 Metformin HCl (Metformin HCl) 1,000 Mg Tablet, 1,000 MG PO BID, (Reported) Entered as Reported by: MELANIE SINCLAIR on 07/16/201623 Quetiapine Fumarate (Seroquel) 100 Mg Tablet, 100 MG PO HS, (Reported) Entered as Reported by: MELANIE SINCLAIR on 07/16/201623 Review of Systems Review of Systems Constitutional: see HPI Respiratory: see HPI Cardiovascular: no symptoms reported Gastrointestinal: no symptoms reported Musculoskeletal: see HPI Skin: see HPI Psychiatric/Neurological: No Symptoms Reported Endocrine: No Symptoms Reported Past Drwadow-Dssmdc-Ugrslu Hx Immunizations Up To Date First/Initial COVID19 Vaccinat: Yes Second COVID19 Vaccination Lonny: Yes Seasonal Allergies Seasonal Allergies: No Past Medical History Surgery/Hospitalization HX: Tonsilectomy; Appendectomy; Rhinoplasty; Rotator cuff repair; Bicep repair; Left hip pair; Bilateral knee arthroscopy; HTN; Carpal tunnel; High cholesterol; DM insulin dependent; GERD; Chronic joint pain. Surgeries: Yes Joint Replacement, Orthopedic, Thyroidectomy, Tonsillectomy Respiratory: Yes Sleep Apnea Currently Using CPAP: No Cardiac: Yes High Cholesterol, Hypertension Neurological: No Sexually Transmitted Disease: No HIV/AIDS: No Genitourinary: No Gastrointestinal: No Musculoskeletal: Yes Arthritis, Chronic Back Pain, Fractures Endocrine: Yes Diabetes, Insulin dep HEENT: No Cancer: No Psychosocial: Yes Bipolar Integumentary: No Blood Disorders: No Family Medical History Cancer, CAD Over 55 Years Old Physical Exam Vital Signs Vital Signs - First Documented 09/29/21 13:15 Temp 35.8 Pulse 90 Resp 18 B/P (MAP) 154/82 (106) Pulse Ox 97 O2 Delivery Room Air Capillary Refill : General Appearance: WD/WN, no apparent distress Cardiovascular: normal peripheral pulses, regular rate, rhythm Respiratory: lungs clear, normal breath sounds Gastrointestinal: non tender, soft Extremities: normal range of motion, normal capillary refill 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, no motor/sensory deficits, a lert, normal mood/affect, oriented x 3 Skin: other (3cm superficial laceration ) Skin Problem Location: upper extremities Skin Problem Character: linear Progress/Results/Core Measures Results/Orders Vital Signs/I&O 09/29/21 09/29/21 13:15 13:30 Temp 35.8 35.8 Pulse 90 90 Resp 18 18 B/P (MAP) 154/82 (106) 154/82 Pulse Ox 97 97 O2 Delivery Room Air Room Air Departure Impression Primary Impression: Laceration of left hand without complication, excluding fingers Qualified Codes: S61.412A - Laceration without foreign body of left hand, initial encounter Disposition: 01 HOME, SELF-CARE Condition: Stable Departure-Patient Inst. Referrals: MIGUEL ANGEL GONZALES MD (PCP) Primary Care Physician Patient Instructions: Laceration Repair With Glue ED Add. Discharge Instructions: keep clean with warm soapy water All discharge instructions reviewed with patient and/or family. Voiced understanding. FIDE FLOYD DO September 29, 2021 13:14
[2021-09-29 13:30] VITALS: BP 154/82
== END 2021-09-29 13:31 | disposition home or self-care (01) ==
LOC: EDUNIT# 13:11 → ER FS 13:12
DX: S61.412A Laceration without foreign body of left hand, initial encounter (principal); E11.9 Type 2 diabetes mellitus without complications; Z79.4 Long term (current) use of insulin; W20.8XXA Other cause of strike by thrown, projected or falling object, initial encounter; Y92.007 Garden or yard of unspecified non-institutional (private) residence as the place of occurrence of the external cause; Y93.H2 Activity, gardening and landscaping
CPT/HCPCS: 12001

== ENCOUNTER → 2021-10-14 | Outpatient (CLI) | payer MEDICARE | LOC: CARD 10:23 | PROVIDERS: ATTEND Internal Medicine Cardiovascular Disease | DX: I51.7 Cardiomegaly (principal); I35.8 Other nonrheumatic aortic valve disorders | CPT/HCPCS: 93306 ==

== ENCOUNTER → 2021-10-17 | Outpatient (CLI) | payer MEDICARE ==
[~2021-10-17] MED LIST changes: +CATHETER FLUSH 10 ML SYR IVP PRN; +REGADENOSON 0.4 MG/5 ML SYR (LEXISCAN) IV ONE
[2021-10-17 09:04] VITALS: BP 183/98
--- NOTE | 2021-10-19 08:07 | NUCLEAR STRESS TEST ---
REGADENOSON NUCLEAR STRESS Date of procedure: 10/17/2021. Primary care provider: Anderson eBnedict MD Admitting physician: Carlos Eduardo Heredia Jr., MD. INDICATION: Abnormal electrocardiogram. BASELINE ELECTROCARDIOGRAM: Sinus rhythm with low voltage in the precordial leads and nonspecific ST changes. STRESS TEST PROCEDURE: The patient was administered 0.4 mg of intravenous Regadenoson. The resting heart rate was 79 bpm and the peak heart rate was 113 bpm. The resting blood pressure was 168/106 mmHg and the minimum blood pressure was 141/104 mmHg. This represents a normal heart rate and a normal blood pressu re response to Regadenoson with resting hypertension. The test was stopped due to the protocol. There was no chest discomfort during the test. There were no arrhythmias during the test. There were no significant stress induced electrocardiogram changes. NUCLEAR PROCEDURE: The patient was administered 10.7 mCi of intravenous technetium 99m Tetrofosmin at rest for the rest images. The patient was subsequently administered 30.4 mCi of intravenous technetium 99m Tetrofosmin at peak stress for the stress images. Following an appropriate wait after each injection, imaging was obtained. The images were subsequently processed and re formatted in the usual views. Gated imaging was obtained. The image quality was adequate with a mild degree of gastrointestinal attenuation artifact. CT attenuation correction was used as a adjunct to standard imaging. Both the corrected and uncorrected images were reviewed for interpretation. NUCLEAR RESULTS: There was a small, moderate intensity, reversible distal anterior and apical defect with a small amount of inducible ischemia with a summed stress score of 2 and a summed difference score of 2. There was normal left ventricular chamber size with an end-diastolic volume of 100 mL and an end- systolic volume of 40 mL. There was no evidence of transient ischemic dilatation. The TID ratio was 0.99. There was normal wall motion in all segments with a calculated ejection fraction of 60%. IMPRESSION: 1. Normal heart rate and blood pressure response to regadenoson with resting hypertension. 2. There was no chest discomfort, arrhythmias, or electrocardiogram changes during the test. 3. There was a small, moderate intensity, reversible distal anterior and apical defect with a small amount of inducible ischemia with a summed stress score of 2 and a summed difference score of 2. 4. There was normal wall motion in all segments with a calculated ejection fr action of 60%. 5. This is an abnormal result although represents low risk for possible future coronary ischemic events. Certain portions of this document may have been dictated utilizing voice recognition technology. Inherent to this technology, typographical and grammatical errors may exist. As much as I am diligent to identify and correct these mistakes, some errors may remain in the document. CARLOS EDUARDO HEREDIA JR, MD October 19, 2021 08:07
== END ==
LOC: CARD 07:37
PROVIDERS: ATTEND Internal Medicine Cardiovascular Disease
DX: R94.31 Abnormal electrocardiogram [ECG] [EKG] (principal)
CPT/HCPCS: 78452; 93017; A9502

== ENCOUNTER 2021-11-22 12:44 | Outpatient (CLI) | payer MEDICARE ==
[~2021-11-22 12:44] MED LIST changes: -CATHETER FLUSH 10 ML SYR IVP PRN; -REGADENOSON 0.4 MG/5 ML SYR (LEXISCAN) IV ONE
== END 2021-11-22 13:15 ==
LOC: SLEEP 12:44
PROVIDERS: ATTEND Internal Medicine Cardiovascular Disease
DX: G47.33 Obstructive sleep apnea (adult) (pediatric) (principal); I10 Essential (primary) hypertension
CPT/HCPCS: G0399